=== PATIENT | female | born 1990 | race Caucasian/White ===

== ENCOUNTER 2020-09-13 02:30 | Emergency (ER) | payer OTHER ==
[2020-09-13] MEDS ORDERED: HYDROcod/ACETAM 5/325 MG TABLET PO STA (02:51)
--- NOTE | 2020-09-13 02:55 | ED Physician Documentation ---
History of Present Illness - Stated complaint Stated Complaint: dental pain - Chief complaint Chief Complaint: Heent - History obtained from History obtained from: Patient - Additonal information Additional information: Patient comes emergency department complaining of what she thought was a toothache on her right side. She states that she cannot tell if it started in the mandibular or maxillary area, but that the pain has spread over the last couple of days up her right face and into her right scientologist and even to her right ear. Patient states that she cannot do anything to make the pain better or worse. She went to her dentist this morning and they took an x-ray and told her they could not see anything abnormal. Patient was told that the pain may be coming from her right sinus, as she was congested a week ago, but is not any longer. Patient was given ibuprofen, but states it did not help at all. She has not been able to sleep tonight because of the pain. Patient denies fevers or chills. No sinus congestion. No history of shingles. No throat pain or swelling. No other complaints at this time Review of Systems Ten Systems: 10 systems reviewed and negative Constitutional: reports: Reviewed and negative Eyes: reports: Reviewed and negative Ears: reports: Reviewed and negative Nose: reports: Sinus pressure / pain. denies: Rhinorrhea / runny nose, Congestion Throat: reports: Dental pain / toothache. denies: Oral lesions / sores, Sore throat Cardiac: reports: Reviewed and negative Respiratory: reports: Reviewed and negative GI: reports: Reviewed and negative : reports: Reviewed and negative Skin: reports: Reviewed and negative Musculoskeletal: reports: Reviewed and negative Neurologic: reports: Reviewed and negative Psychiatric: reports: Reviewed and negative Endocrine: reports: Reviewed and negative Immunocompromised: reports: Reviewed and negative PD PAST MEDICAL HISTORY - Past Medical History Past Medical History: No - Past Surgical History Past Surgical History: No - Present Medications Home Medications: Ambulatory Orders Medication Instructions Recorded Confirmed HYDROcod/ACETAM 5/325 [Stow 5/325] 1 - 2 ea PO Q6H PRN #15 tablet 09/13/20 - Allergies Allergies/Adverse Reactions: Allergies Allergy/AdvReac Type Severity Reaction Status Date / Time No Known Drug Allergies Allergy Verified 09/13/20 02:44 - Social History Does the pt smoke?: No Smoking Status: Never smoker PD ED PE NORMAL - Vitals Vital signs reviewed: Yes - General General: Alert and oriented X 3, No acute distress - HEENT HEENT: Atraumatic, PERRL, EOMI, Moist mucous membranes, Pharynx benign, Dentition benign (Minimal right maxillary gingival tenderness. No swelling or fluctuance. No induration. No buccal swelling induration or fluctuance.), Other (Mild tenderness of her right maxillary sinus, no facial swelling) - Neck Neck: Supple, no meningeal sign, No adenopathy - Respiratory Respiratory: No respiratory distress - Derm Derm: Warm and dry - Extremities Extremities: No deformity - Neuro Neuro: Alert and oriented X 3 - Psych Psych: Normal mood, Normal affect Results - Vitals Vitals: Vital Signs - 24 hr 09/13/20 02:32 Temperature 37.1 C Heart Rate 81 Respiratory 18 Rate Blood Pressure 156/112 H O2 Saturation 100 Oxygen O2 Source Room air PD MEDICAL DECISION MAKING - ED course Complexity details: reviewed results, re-evaluated patient, considered differential, d/w patient ED course: I discussed with the patient that it is not clear what is causing her pain, though I would be less suspicious of her sinus then of a dental source. However, since the patient did have a Panorex performed today and her dentist told her that he does not see any dental issues that should be causing the pain, I did go ahead and get a sinus x-ray series on the patient to evaluate for opacification of the sinus. This was found to be negative. The patient was treated symptomatically in the emergency department with a dose of Vicodin. She was given a prescription for some time at home. She states she will go see her dentist again today. Departure - Departure Disposition: , Self Care Clinical Impression: Facial pain, acute Condition: Stable Instructions: ED Tooth Pain Prescriptions: HYDROcod/ACETAM 5/325 [Stow 5/325] 1 - 2 ea PO Q6H PRN #15 tablet PRN Reason: Pain Comments: Your sinus x-ray series shows that your sinuses are lately clear. There is no fluid in the sinuses or any other abnormality to suggest a sinus infection. At this point in time, your symptoms also do not really indicate a sinus source and are most convincing for pain of dental origin. It is very good idea to follow- up with your dentist again in the very near future. In the meantime, you may take the pain medication prescribed as needed, as well as the ibuprofen you are already on please follow-up with your dentist as soon as possible.
[2020-09-13 03:30] VITALS: BP 148/98
--- NOTE | 2020-09-13 08:46 | XRAY Report ---
PROCEDURE: Sinus Complete INDICATIONS: R sinus pain TECHNIQUE: 3 views of the sinuses were acquired. COMPARISON: None FINDINGS: Sinuses: The visualized sinuses demonstrate no air-fluid levels or mucosal thickening. The visualiz ed mastoids also appear clear. Bones: No suspicious bony lesions. Nasal septum is midline. IMPRESSION: No mucosal thickening or air-fluid level is seen within the paranasal sinuses. Depending on the clini errol status follow-up by MR scanning with contrast may become necessary. Reviewed by: Trevor Dos Santos MD on 09/13/2020 8:44 AM PDT Approved by: Trevor Dos Santos MD on 09/13/2020 8:44 AM PDT Station ID: [id number]
== END 2020-09-13 03:30 | disposition home or self-care (01) ==
LOC: ED 02:30
DX: R51.9 Headache, unspecified (principal)
CPT/HCPCS: 70220; 99283; 99284; A9270

== ENCOUNTER 2024-02-10 06:38 | Outpatient (CLI) | payer OTHER ==
--- NOTE | 2024-02-10 15:59 | Ultrasound Report ---
PROCEDURE: Abdomen Limited INDICATIONS: CHOLESTEROLOSIS OF GALLBLADDER TECHNIQUE: Real-time focused scanning was performed of the abdomen, with image documentation. COMPARISONS: None. FINDINGS: Liver: Liver is normal in size and homogeneous in echotexture. Liver parenchyma is diffusely echoge ryley. Main portal vein is patent with hepatopedal flow. Gallbladder: No cholelithiasis or sludge. Sessile] gallbladder polyp measuring 8 mm. Normal wall thic kness measuring 1.4 mm.. Biliary ducts: Intrahepatic bile ducts are non-dilated. Extrahepatic bile duct caliber measures 4 m m. Normal is 6-7 mm or less in diameter, or 10 mm or less post-cholecystectomy. Pancreas: Visualized portions of the pancreas are sonographically normal. Right kidney: Normal in size and echotexture. Right kidney measures 11.1 cm long. No hydronephrosis or nephrolithiasis. No solid masses. No complex renal cystic lesions which require follow-up. Miscellaneous: No free abdominal fluid. IMPRESSION: 1.Sessile echogenic gallbladder polyp measuring 8 mm. Recommend repeat ultrasound in 6 months or comp arison with prior imaging if available. 2.Liver parenchyma is diffusely echogenic which may be seen in the setting of parenchymal disease suc h as steatosis. Reviewed by: Gerardo Irvin MD on 02/10/2024 3:57 PM PDT Approved by: Gerardo Irvin MD on 02/10/2024 3:57 PM PDT Station ID: [id number]
== END 2024-02-10 06:39 | disposition home or self-care (01) ==
LOC: DI 06:38
PROVIDERS: ATTEND Family Medicine
DX: K82.4 Cholesterolosis of gallbladder (principal)